=== PATIENT | male | born 1950 | race Caucasian/White ===

== ENCOUNTER → 2022-04-26 10:21 | Outpatient (CLI) | payer OTHER, SELFPAY ==
--- NOTE | 2022-04-26 | DI.ECHO.S_ITS ---
[facility]---------+ [facility] +---------+ : : [address] : : : : [id number] : : : : Phone: [phone] +---------+ Echocardiogram Report + + :Name: BASIA MARC Study Date: 04/26/2022 Height: 71 in : :[facility] ReadingLocation: Weight: 213 lb : : Gender: Male BSA: 2.2 m2 : :: 1950 Age: 72 yrs BP: 167/105 mmHg: :Reason For Study: CAD : :Ordering Physician: NEERAJ : :BEAU Performed By: Sameer Mathis : :Referring: BEAU PICKARD : + + Interpretation Summary The ejection fraction is estimated to be 60-65%. Diastolic parameters suggest probable normal left ventricular diastolic function and normal filling pressures. The right ventricle is normal in size and function. No significant valvular abnormalities. Unable to estimate PASP. Procedure: A two-dimensional transthoracic echocardiogram with color flow and Doppler was performed. The study quality was technically difficult. There is no prior echocardiogram noted for this patient. Left Ventricle: The left ventricle is normal in size and wall thickness. Left ventricular systolic function is normal. The ejection fraction is estimated to be 60-65%. There are no focal wall motion abnormalities. Diastolic parameters suggest probable normal left ventricular diastolic function and normal filling pressures. Right Ventricle: The right ventricle is normal in size and function. Atria: Both atria are normal in size. The interatrial septum grossly appears intact with no obvious evidence for an atrial septal defect. Mitral Valve: The mitral valve is normal in structure and function. There is trace mitral regurgitation. Aortic Valve: The aortic valve is trileaflet. There is no aortic valve stenosis. No aortic regurgitation is present. Tricuspid Valve: The tricuspid valve is normal in structure and function. No tricuspid regurgitation. Pulmonary artery pressures cannot be estimated because of the lack of a measurable TR jet velocity. Pulmonic Valve: The pulmonic valve is not well visualized. Great Vessels: The aortic root is normal size. The ascending aorta could not be visualized. The inferior vena cava was not visualized. Pericardium/ Pleura There is no pericardial effusion. There is no pleural effusion. MMode/2D Measurements & Calculations LVIDd: 4.2 cm LVOT diam: 2.1 cm LVIDs: 2.6 cm Ao root diam: 3.5 cm FS: 38.1 % IVSd: 0.90 cm LVPWd: 1.0 cm LV cantu. diameter/BSA (cm/m^2): 1.9 LV sys. diameter/BSA (cm/m^2): 1.2 LA dimension: 3.3 cm RA long axis: 5.3 cm LA A2 area: 16.6 cm2 LA A4 area: 16.7 cm2 LA length (vol): 4.7 cm LA vol: 49.7 ml LA vol index: 23.0 ml/m2 TAPSE_phl: 2.1 cm Doppler Measurements & Calculations Ao V2 max: 106.0 cm/sec LVOT Max Daniel: 99.2 cm/sec Ao V2 mean: 84.2 cm/sec LV V1 max P.9 mmHg Ao max P.0 mmHg LV V1 VTI: 20.3 cm Ao mean P.0 mmHg EARNEST(I,D): 3.2 cm2 Ao V2 VTI: 22.2 cm EARNEST(V,D): 3.2 cm2 sev ratio: 0.91 EARNEST indexed to BSA (cm^2/m^2): 1.5 MV E max daniel: 54.0 cm/sec SV(LVOT): 70.3 ml MV A max daniel: 81.0 cm/sec MV E/A: 0.67 Med Peak E' Daniel: 5.3 cm/sec E/E' med: 10.2 Lat Peak E' Daniel: 9.0 cm/sec E/E' lat: 6.0 E/e' average: 8.1 MV dec time: 0.37 sec AV VR_phl: 0.94 MV P1/2t-pr_phl: 108.0 msec EARNEST(VTI)/BSA_phl: 1.5 Reading Physician:02:45 PM
== END ==
PROVIDERS: PCP Family Medicine; Referring Provider Physician Assistant; Visit Provider Physician Assistant
DX: I25.10 Atherosclerotic heart disease of native coronary artery without angina pectoris (principal)
CPT/HCPCS: 93306